=== PATIENT | male | born 1970 | race Caucasian/White ===

== ENCOUNTER 2019-12-29 00:18 | Emergency (ER) | payer BC, SELFPAY ==
[2019-12-29 00:23] VITALS: BP 160/119; PULSE 86; RESP 16; TEMP 36.8; O2SAT 98
--- NOTE | 2019-12-29 00:28 | W.ED.GENAD ---
Discharge Plan Disposition Patient Disposition: HOME Condition: Stable Discharge Details Chief Complaint: RashLesion Clinical Impression: Shingles Primary Care Provider: María Altamirano V ED Provider: Pedro Thomas Home Meds and New Rx's Prescriptions: New prednisone 20 mg tablet 60 mg PO DAILY 4 Days Qty: 12 RF: 0 valacyclovir [Valtrex] 1 gram tablet 1,000 mg PO Q8H Qty: 21 RF: 0 Discharge Instructions Instructions: Shingles (ED) Additional Instructions: follow up with [facility] on Monday if you have pain take 1000mg tylenol and 600mg ibuprofen every 6 hours if you take 1 of the oxycodone do not drink alcohol or drive return to the emergency department for high fevers or significant increase in pain Medical Decision Making 49 yo male comes in with pain in the right eye. HE has had a rash on the right side of his face and thought it was just a reaction to something that got on his skin. Tonight he had some pain of the rash and right eye so came here. Denies fevers, trauma, viision changes. He has vesicular rash on the right forehead consistent with shingles, has never had this before but did have chickenpox as a child. eomi, perrl, mild injection of conjunctiva on right, iop 10, 20/100 in both eyes without his glasses. On slit lamp has no psuedodendrite that I can see. Will start him on valtrex as well as oral steroids as the rash has been itching. Will have him f/u with [facility] on Monday as well. Return precautions given Differential Diagnosis Differential Diagnosis: shingles, herpes zoster opthalmicus HPI General Mode of arrival: ambulatory. Date/Time Provider Initiated Documentation: 12/29/19 00:20. Limitations to Documentation: no limitations. Information obtained by: patient. History of Present Illness 49 year old M presents to the emergency department with the chief complaint of rash, described as moderate, Patient started experiencing this day(s) (2) and it has been constant. No relieving factors improve symptom(s), No exacerbating factors reported . Patient did receive the following treatments prior to arrival, none Related Data Home Medications Medication Instructions Recorded Confirmed prednisone 60 mg PO DAILY 4 Days #12 tab 12/29/19 valacyclovir [Valtrex] 1,000 mg PO Q8H #21 tab 12/29/19 Previous Rx's Medication Instructions Recorded prednisone 60 mg PO DAILY 4 Days #12 tab 12/29/19 valacyclovir [Valtrex] 1,000 mg PO Q8H #21 tab 12/29/19 Allergies Allergy/AdvReac Type Severity Reaction Status Date / Time No Known Allergies Allergy Unverified 12/29/19 00:27 General Stated Complaint: RashLesion RUDDY: 3 Review of Systems All systems reviewed & are unremarkable except as noted in HPI and below Constitutional Constitutional: Denies chills, Denies fever(s) and Denies weakness Eyes Eyes: Denies loss of vision Cardiovascular Cardiovascular: Denies chest pain and Denies dyspnea Respiratory Respiratory: Denies cough and Denies dyspnea Gastrointestinal Gastrointestinal: Denies abdominal pain, Denies nausea and Denies vomiting Neurologic Neurologic: Denies loss of vision and Denies weakness PFSH Social History Smoking/Tobacco Use Status: Former Tobacco Use Substance use type: does not use Do you feel safe at home: Yes Exam Const General: no acute distress Orientation: alert HENMT Head: normal to inspection Ears: external ears normal General nose exam: external nose normal Mouth: moist mucous membranes Eyes Alignment and Position: alignment normal Pupils: PERRL Neck Neck: normal visual inspection Resp Effort & Inspection: normal respiratory effort and able to speak in complete sentences Cardio Rate: regular rate Skin General skin exam: elasticity normal Neuro General: patient alert and patient oriented x3 Extrem General: normal to inspection Psych Mental Status: mental status grossly normal Course Vital Signs Vital signs: Vital Signs Temperature 36.8 C 12/29/19 00:23 Pulse 86 12/29/19 00:23 Respiratory Rate 16 12/29/19 00:23 Pulse Oximetry 98 12/29/19 00:23 Temperature 36.8 C 12/29/19 00:23 Temperature Source Temporal Artery Scan 12/29/19 00:23 Pulse 86 12/29/19 00:23 Respiratory Rate 16 12/29/19 00:23 Blood Pressure Position Sitting 12/29/19 00:23 Pulse Oximetry 98 12/29/19 00:23 Oxygen Delivery Method Room Air 12/29/19 00:23 Oxygen Flow Rate 0 12/29/19 00:23 Pain Level 6 12/29/19 00:23
--- NOTE | 2019-12-29 00:31 | NUR.NOTE ---
Nursing Note:referal and note faxed to [facility] on 12/29/2019
[2019-12-29] MEDS: valACYclovir 1,000 MG TAB 1000 MG PO (00:35)
[2019-12-29] MEDS: Fluorescein STRIPS 100/BOX 1 MG (00:39)
[2019-12-29] MEDS: predniSONE 20 MG TAB 60 MG PO (00:40)
[2019-12-29] MEDS: Balanced Salt Solution 15 ML BTL (00:42)
[2019-12-29] MEDS: Tetracaine 0.5% 4 ML BTL (00:43)
== END 2019-12-29 00:45 | disposition home or self-care (01) ==
LOC: ER 00:49
PROVIDERS: Emergency Provider Emergency Medicine; PCP Family Medicine
DX: B02.9 Zoster without complications (principal)
CPT/HCPCS: 99283; J7512

== ENCOUNTER 2022-12-05 09:00 | Emergency (ER) | payer OTHER, SELFPAY ==
[2022-12-05 09:06] VITALS: BP 185/93; PULSE 81; RESP 20
--- NOTE | 2022-12-05 09:48 | ED.GENADUL_ITS ---
Discharge Plan Disposition Patient Disposition: Home Condition: Stable Discharge Details Clinical Impression: Fall due to ice or snow, Contusion of face, Abrasion of face, Concussion, Elevated blood pressure reading Primary Care Provider: María Altamirano V ED Provider: Alexandru Herrera Home Meds and New Rx's Prescriptions: Discontinued valacyclovir [Valtrex] 1 gram tablet 1,000 mg PO Q8H Qty: 21 0RF No Action No Known Home Meds Discharge Instructions Instructions: Concussion (ED), Abrasion (ED), Hypertension (ED) Additional Instructions: Your blood pressure was persistently elevated today. Please be sure to discuss this with your doctor. If blood pressure remains elevated, additional diagnostics and treatment may be necessary. Please contact your primary care physician to arrange follow-up. Call today. Return to the ER immediately for any worsening or new concerning symptoms including headache, dizziness, numbness or tingling, visual change or anything else concerning. Stand Alone Forms: Work Release Referrals: María Altamirano MD [Primary Care Provider] - Discharge Data Discharge Date/Time-TO BE ENTERED AT DEPARTURE: 12/05/22 10:56 Medical Decision Making 52-year-old male here after slip and fall on ice with injury to the right side of his face head. Patient was a bit dazed after the fall but notes he did not lose consciousness. Patient has no headache. He is neurologically intact. Suspect concussion. Considered intracranial hemorrhage. Discussed diagnostic imaging with the patient and he provided informed refusal of CT head. Patient has decisional making capacity. Plan will be for discharge with plan to return immediately should any worsening or new concerning symptoms. HPI General Mode of arrival: ambulatory . Date/Time Provider Initiated Documentation: 12/05/22 09:34 . Limitations to Documentation: no limitations . Information obtained by: patient . HPI Narrative: 52-year-old male presents after slip and fall on ice with injury to his right side of his head. Patient notes he felt a bit dazed and confused after the injury. Patient notes he did not lose consciousness. Patient notes some minimal unsteadiness after the injury. He is now feeling much better. He denies headache. He does have some right facial swelling. No pain with opening closing his jaw. No neck pain. No numbness or tingling. No visual changes. Related Data Home Medications Medication Instructions Recorded Confirmed Unknown [No Known Home Meds] 12/05/22 12/05/22 Allergies Allergy/AdvReac Type Severity Reaction Status Date / Time No Known Allergies Allergy Unverified 12/05/22 09:10 General Stated Complaint: Trauma RUDDY: 3 Review of Systems All systems reviewed & are unremarkable except as noted in HPI and below ENT Ears, Nose, Mouth, and Throat: Reports as per HPI Neurologic Neurologic: Reports as per HPI PFSH All Active Problems (Updated 12/05/22 @ 10:52 by Alexandru Herrera MD) Fall due to ice or snow (Acute) Contusion of face (Acute) Abrasion of face (Acute) Concussion (Acute) Elevated blood pressure reading (Acute) Social History Smoking/Tobacco Use Status: Current every day Tobacco Type: smokeless tobacco Smoking risk assessment performed?: Yes Drug use: Never Substance use type: does not use Do you feel safe at home: Yes Exam Const General: cooperative and no acute distress HENMT Ears: external ears normal and TM normal on the right Mouth: moist mucous membranes Other: Abrasion right lateral face with associated swelling, bite intact, able to open and close his mouth fully without pain, no bony tenderness Eyes EOM: EOM intact bilaterally Neck Neck: trachea midline and supple Resp Auscultation: clear to auscultation bilaterally, no rales, no rhonchi and no wheezes Cardio Rate: regular rate and not tachycardic Rhythm: regular rhythm GI Palpation: soft, not firm, no guarding, no masses, not rigid and nontender Skin General skin exam: no rashes or lesions noted Neuro General: patient alert, patient awake, patient oriented x3 and tone normal Cranial Nerves: CN's II-XI intact bilaterally Cognition: normal cognition Speech: speech normal Gait: normal gait Motor: strength 5/5 throughout Sensory Exam: no sensory deficits noted Extrem General: no edema Psych Appearance: grossly normal Mental Status: mental status grossly normal Speech and Movement: speech and movement normal Course Vital Signs Vital signs: Vital Signs Pulse 81 12/05/22 09:06 Respiratory Rate 20 12/05/22 09:06 Blood Pressure 185/93 H 12/05/22 09:06 Pulse 81 12/05/22 09:06 Respiratory Rate 20 12/05/22 09:06 Respiratory Effort Normal 12/05/22 09:11 Blood Pressure 185/93 H 12/05/22 09:06 Blood Pressure Position Sitting 12/05/22 09:06 Oxygen Delivery Method Room Air 12/05/22 09:06 Oxygen Flow Rate 0 12/05/22 09:06 Pain Level 0 12/05/22 09:06
[2022-12-05 10:52] VITALS: BP 182/98; PULSE 84; RESP 18; TEMP 37.2; O2SAT 98
== END 2022-12-05 10:56 | disposition home or self-care (01) ==
PROVIDERS: Emergency Provider Student in an Organized Health Care Education/Training Program; PCP Family Medicine
DX: S06.0X0A Concussion without loss of consciousness, initial encounter (principal); W01.198A Fall on same level from slipping, tripping and stumbling with subsequent striking against other object, initial encounter; S00.83XA Contusion of other part of head, initial encounter; S00.81XA Abrasion of other part of head, initial encounter
CPT/HCPCS: 90471; 99284; 99283

== ENCOUNTER → 2023-07-19 02:40 | Outpatient (CLI) | payer BC, SELFPAY ==
--- OUTSIDE RECORDS SUMMARY | 2023-07-18 13:56 | XMS_ITS | Patient Health Record ---
Author Name Unknown Organization [facility] Address [address] [place] [address] Care Team Providers Care Special Education Professor Name Role Phone KATHY GEORGES Primary Care Provider [phone] ROMELMATT Unavailable [phone] TWYLA WARREN Unavailable [phone] ALLERGIES No Known Allergies RESULTS Component Value Reference Range Notes LIPID PANEL Reviewed date:04/24/2023 11:56:14 AM Interpretation: Performing Lab:NL1, [facility], [address] [place] [address], [phone] Yaz Campbell M.D. Notes/Report: Received Date: [id number] CHOLESTEROL, TOTAL 182 <200 mg/dL HDL CHOLESTEROL 37 > OR = 40 mg/dL TRIGLYCERIDES 361 <150 mg/dL If a non-fasting specimen was collected, consider repeat triglyceride testing on a fasting specimen if clinically indicated. Estrella et al. J. of Clin. Lipidol. 2015;9:129-169. LDL-CHOLESTEROL 97 Reference range: <100 Desirable range <100 mg/dL for primary prevention; <70 mg/dL for patients with CHD or diabetic patients with > or = 2 CHD risk factors. LDL-C is now calculated using the Mando calculation, which is a validated novel method providing better accuracy than the Friedewald equation in the estimation of LDL-C. Timur CHANG et al. MARIAH. 2013;310(19): 0285-9400 (http://education.[employer].com/faq/FAQ16 4) CHOL/HDLC RATIO 4.9 <5.0 (calc) NON HDL CHOLESTEROL 145 <130 mg/dL (calc) For patients with diabetes plus 1 major ASCVD risk factor, treating to a non-HDL-C goal of <100 mg/dL (LDL-C of <70 mg/dL) is considered a therapeutic option. CBC (INCLUDES DIFF/PLT) Reviewed date:04/24/2023 11:56:29 AM Interpretation: Performing Lab:NL1, [facility], [address] [place] [address], [phone] Yaz Campbell M.D. Notes/Report: Received Date: [id number] WHITE BLOOD CELL COUNT 5.7 3.8-10.8 Thousand/ uL RED BLOOD CELL COUNT 5.00 4.20-5.80 Million/uL HEMOGLOBIN 14.4 13.2-17.1 g/dL HEMATOCRIT 44.9 38.5-50.0 % MCV 89.8 80.0-100.0 fL MCH 28.8 27.0-33.0 pg MCHC 32.1 32.0-36.0 g/dL RDW 13.3 11.0-15.0 % PLATELET COUNT 199 140-400 Thousand/uL MPV 12.2 7.5-12.5 fL ABSOLUTE NEUTROPHILS 3711 9619-2631 cells/uL ABSOLUTE LYMPHOCYTES 1624 733-1111 cells/uL ABSOLUTE MONOCYTES 553 200-950 cells/uL ABSOLUTE EOSINOPHILS 120 15-500 cells/uL ABSOLUTE BASOPHILS 63 0-200 cells/uL NEUTROPHILS 65.1 LYMPHOCYTES 22.0 MONOCYTES 9.7 EOSINOPHILS 2.1 BASOPHILS 1.1 PSA, TOTAL Reviewed date:04/24/2023 11:56:45 AM Interpretation: Performing Lab:NL1, [facility], [address] [place] [address], [phone] Yaz Campbell M.D. Notes/Report: Received Date: [id number] PSA, TOTAL 3.75 < OR = 4.00 ng/mL The total PSA value from this assay system is standardized against the WHO standard. The test result will be approximately 20% lower when compared to the equimolar-standardized total PSA (Rinku Melfa). Comparison of serial PSA results should be interpreted with this fact in mind. This test was performed using the Siemens chemiluminescent method. Values obtained from different assay methods cannot be used interchangeably. PSA levels, regardless of value, should not be interpreted as absolute evidence of the presence or absence of disease. TSH, 3RD GENERATION W/REFLEX TO FT4 Reviewed date:04/24/2023 11:56:36 AM Interpretation: Performing Lab:NL1, [facility], [address] [place], [phone] Yaz Campbell M.D. Notes/Report: Received Date: TSH W/REFLEX TO FT4 1.57 0.40-4.50 mIU/L COMPREHENSIVE METABOLIC PANE L Reviewed date:04/24/2023 11:56:21 AM Interpretation: Performing Lab:NL1, [facility], [address] [place], [phone] Yaz Campbell M.D. Notes/Report: Received Date: GLUCOSE 80 65-99 mg/dL Fasting reference interval UREA NITROGEN (BUN) 15 7-25 mg/dL CREATININE 0.95 0.70-1.30 mg/dL EGFR 95 > OR = 60 mL/min/1.73m2 The eGFR is based on the CKD-EPI 2020 equation. To calculate the new eGFR from a previous Creatinine or Cystatin C result, go to https://www.kidney.org/p benfessionals/ kdoqi/gfr%5Fcalculator BUN/CREATININE RATIO NOT APPLICABLE 6-22 (calc) SODIUM 140 135-146 mmol/L POTASSIUM 3.9 3.5-5.3 mmol/L CHLORIDE 104 98-110 mmol/L CARBON DIOXIDE 26 20-32 mmol/L CALCIUM 9.5 8.6-10.3 mg/dL PROTEIN, TOTAL 7.1 6.1-8.1 g/dL ALBUMIN 4.3 3.6-5.1 g/dL GLOBULIN 2.8 1.9-3.7 g/dL (calc) ALBUMIN/GLOBULIN RATIO 1.5 1.0-2.5 (calc) BILIRUBIN, TOTAL 0.6 0.2-1.2 mg/dL ALKALINE PHOSPHATASE 70 35-144 U/L AST 20 10-35 U/L ALT 24 9-46 U/L REASON FOR REFERRAL Reason follow up colonoscop y for adenomas please eval & treat office to schedule appointment Diagnosis 1 Polyp of colon (K63. 5) Referral Organization [facility] Referring Provider First Name TWYLA Referring Provider Last Name BRIANA Referring Provider Speciality Physician Aerial Photographer Referred Provider Reyes Dupont Referred Provider Specialty Gastroentero logy Referral Priority Routine Reason please eval & treat bumps on skin office to schedule appointment Diagnosis 1 Soft tissue disorder , unspecified (M79.9) Referral Organization [facility] Referring Provider First Name TERESA [facility] Referring Provider Speciality Physician Aerial Photographer Referred Provider Karl Jurado Referred Provider Specialty Allergy/Immu nology Referral Priority Routine MEDICATIONS Medication SIG (Take, Route, Fr equency, Duration) Notes Start Date End Date Status Multiple Vitamins - 1 tablet Orally Once a day Active IMMUNIZATIONS Vaccine Route Administration Date Status Comme nts Tdap-Adult IM Intramuscular 02/19/2016 Administered Moderna COVID-19 IM Intramuscular 10/20/2020 Administered Moderna COVID-19 IM Intramuscular 11/17/2020 Administered Moderna COVID-19 Unknown 07/18/2021 Administered Influenza Unknown 06/17/2011 Administered SOCIAL HISTORY Tobacco Use: Social History Observation Description Date Details (start date - stop date) Former Smoker NA - NA Sex Assigned At : Social History Observation Description Sex Assigned At Unknown Tobacco Use/Smoking Question Answer Notes Are you a former smoker How long has it been since you last smoked? 1-5 years Alcohol Screen Question Answer Notes Did you have a drink containing alcohol in the p ast year? 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) Active confirmed Soft tissue dis order (79327449) Problem Pure hypercholester olemia, unspecified (E78.00) Active confirmed Pure hypercholesterolemia (126698500) Problem Elevated prostate specific antigen [PSA] (R97.20) Active confirmed Elevated PSA (912123689) Encounters Encounter Location Date Provider Diagnosis [address] [address] 12/07/2022 MATT FAUSTINKINS [facility] [address] [place] [address] 04/06/2023 TWYLA WARREN Encounter for general adult medical examination without abnormal findings Z00.00 ; Polyp of colon K63.5 and Soft tissue disorder, unspecified M79.9 [facility] [address] [place] [address] 04/24/2023 TWYLA WARREN Pure hypercholesterolemia , unspecified E78.00 and Elevated prostate specific antigen [PSA] R97.20 ASSESSMENTS Encounter Date Diagnosis Assessment Notes Treatment Notes Treatment Clinical Notes 04/06/2023 Polyp of colon (ICD-10 - K63.5) 04/06/2023 Encounter for general adult medical examination without abnormal findings (ICD-10 - Z00.00) 04/24/2023 Pure hypercholesterolemia , unspecified (ICD-10 - E78.00) 04/24/2023 Elevated prostate specific antigen [PSA] (ICD-10 - R97.20) 04/06/2023 Soft tissue disorder, unspecified (ICD-10 - M79.9) PLAN OF TREATMENT Pending Test Test Name Order Date Electrocardiogram (EKG) 02/13/2015 Future Test Test Name Order Date COMPREHENSIVE METABOLIC PANEL 10/18/2023 PSA, TOTAL 10/18/2023 LIPID PANEL 10/18/2023 Next Appt Details Provider Name:TWYLA BONNER CHICO, 10/18/2023 08:00:00 AM, [address] [place] [address], [place], [address], Provider Name:TWYLA BONNER CHICO, 04/08/2024 08:30:00 AM, [address] [facility], [place], [address], Insurance Providers Payer Name Payer Address Payer Phone Subscriber Number Group Number Insured Name Patient Relationship to Insured Coverage Start Date Coverage End Date [employer] [address] [id number] Davey Rm Self - patient is the insured 2018 MEDICAL (GENERAL) HISTORY Medical History History ICD Code 06-01-2023 colonoscopy, repeat 3 years Surgical History Surgery Date(Month/Year) carpal tunnel release colonoscopy 07/09/2020 left knee medial meniscal repair 2 colonoscopy 06/01/2023
--- OUTSIDE RECORDS SUMMARY | 2023-07-18 13:56 | XMS_ITS | Continuity of Care Document ---
Author Name Unknown Organization [facility] Address [address] [place] [address] Encounter [facility] FIN NBR [id number] Date(s): 12/07/22 - 12/07/22 [facility] [address] [place] [address]- Encounter Diagnosis Postconcussive syndrome(Discharge Diagnosis) - 12/07/22 Discharge Disposition: Home or Self Care Attending Physician: John Geronimo MD Admitting Physician: John Geronimo MD Allergies, Adverse Reactions, Alerts No Known Allergies Functional Status 12/07/22 Other exposure to Infectious Disease Non e Medications ondansetron 4 mg oral tablet 4 mg = 1 tab, Oral, QID, PRN nausea, # 8 tab, 0 Refill(s), 12/14/22 10:37:00 EDT Start Date: 12/07/22 Stop Date: 12/14/22 Status: Ordered Mental Status 12/07/22 Eye Opening Response Marie Spontaneous ly Best Verbal Response [place] Oriented Best Motor Response Marie Obeys comman ds Marie Coma Score 15 Results Radiology Reports * Exam Date Time Procedure Performing Provider Status 12/07/22 10:[address] Head w/o Contrast Salvador, Arianne; Nidia (Verified) Notes: (CT Head w/o Contrast) Reason For Exam: Trauma CT Head w/o Contrast EXAM DESCRIPTION: CT Head w/o Contrast N/A INDICATION: TRAUMA TECHNIQUE: All CT scans at this facility use at least one of these dose optimization techniques: Automated exposure control; mA and/or kV adjustment per patient size (includes targeted exams where dose is matched to clinical indication); or iterative reconstruction. Axial CT images of the head without contrast. COMPARISON: None FINDINGS: No acute intracranial hemorrhage, mass effect or midline shift. No hydrocephalus. Lemons-white differentiation is maintained. Basal cisterns remain patent. The calvarium appears intact. The visualized paranasal sinuses are grossly clear. IMPRESSION: No acute intracranial hemorrhage, mass effect or midline shift. JOB #: [id number] Final Signed by: Aleks Wheeler MD Signed (Electronic Signature): 12/07/2022 10:17 am Vital Signs Most recent to oldest [Reference Range]: 1 2 Temperature Temporal Artery [36-38 Deg C ] 36.7 Deg C (12/07/22 9:33 AM) Peripheral Pulse Rate [60-100 bpm] 72 bp m (12/07/22 10:54 AM) 76 bpm (12/07/22 9:33 AM) Respiratory Rate [12-24 br/min] 16 br/mi n (12/07/22 10:54 AM) 16 br/min (12/07/22 9:33 AM) Blood Pressure [90-140/60-90 mmHg] 174/9 4mmHg *HI* (12/07/22 10:54 AM) 158/91mmHg *HI* (12/07/22 9:33 AM) Weight Dosing 98.00 kg (12/07/22 9:50 AM) Weight Estimated 98.00 kg (12/07/22 9:33 AM) Height/Length Dosing 177.000 cm (12/07/22 9:50 AM) Height/Length Estimated 177.000 cm (12/07/22 9:33 AM) Social History Social History Type Response Tobacco Never tobacco user T obacco Use:. Sex Hospital Discharge Instructions Patient Education 12/07/2022 09:32:07 Post-Concussion Syndrome Post-Concussion Syndrome A concussion is a brain injury from a direct hit to the head or body. This hit causes the brain to shake quickly back and forth inside the skull. This can damage brain cells and cause chemical changes in the brain. Concussions are usually not life-threatening but can cause serious symptoms. Post-concussion syndrome is when symptoms that occur after a concussion last longer than normal. These symptoms can last from weeks to months. What are the causes? The cause of this condition is not known. It can happen whether your head injury was mild or severe. What increases the risk? You are more likely to develop this condition if: ??? You are female. ??? You are a child, teen, or young adult. ??? You have had a past head injury. ??? You have a history of headaches. ??? You have depression or anxiety. ??? You have loss of consciousness or cannot remember the event (have amnesia of the event). ??? You have multiple symptoms or severe symptoms at the time of your concussion. What are the signs or symptoms? Symptoms of this condition include: ??? Physical symptoms. You may have: ??? Headaches. ??? Tiredness. ??? Dizziness and weakness. ??? Blurry vision and sensitivity to light. ??? Hearing difficulties. ??? Problems with balance. ??? Mental and emotional symptoms. You may have: ??? Memory problems and trouble concentrating. ??? Difficulty sleeping or staying asleep. ??? Feelings of irritability. ??? Anxiety or depression. ??? Difficulty learning new things. How is this diagnosed? This condition may be diagnosed based on: ??? Your symptoms. ??? A description of your injury. ??? Your medical history. ??? Testing your strength, balance, and nerve function (neurological examination). Your health care provider may order other tests, including brain imaging such as a CT scan or an MRI, and memory testing (neuropsychological testing). How is this treated? Treatment for this condition may depend on your symptoms. Symptoms usually go away on their own over time. Treatments may include: ??? Medicines for headaches, anxiety, depression, and trouble sleeping (insomnia). ??? Resting your brain and body for a few days after your injury. ??? Rehabilitation therapy, such as: ??? Physical or occupational therapy. This may include exercises to help with balance and dizziness. ??? Mental health counseling. A form of talk therapy called cognitive behavioral therapy (CBT) can be especially helpful. This therapy helps you set goals and follow up on the changes that you make. ??? Speech therapy. ??? Vision therapy. A brain and economic specialist can recommend treatments for vision problems. Follow these instructions at home: Medicines ??? Take sdoj-udl-fxdrjxc and prescription medicines only as told by your health care provider. ??? Avoid opioid prescription pain medicines when recovering from a concussion. Activity ??? Limit your mental activities for the first few days after your injury. This may include not doing the following: ??? Homework or job-related work. ??? Complex thinking. ??? Watching TV, and using a computer or phone. ??? Playing memory games and puzzles. ??? Gradually return to your normal activity level. If a certain activity brings on your symptoms, stop or slow down until you can do the activity without it triggering your symptoms. ??? Limit physical activity, such as exercise or sports, for the first few days after a concussion.Gradually return to normal activity as told by your health care provider. ??? Rest. Rest helps your brain heal. Make sure you: ??? Get plenty of sleep at night. Most adults should get at least 7???9 hours of sleep each night. ??? Rest during the day. Take naps or rest breaks when you feel tired. ??? Do not do high-risk activities that could cause a second concussion, such as riding a bike or playing sports. Having another concussion before the first one has healed can be dangerous. General instructions ??? Do not drink alcohol until your health care provider says that you can. ??? Keep track of the frequency and the severity of your symptoms. Give this information to your health care provider. ??? Keep all follow-up visits as directed by your health care provider. This is important. This includes visits with specialists. Contact a health care provider if: ??? Your symptoms do not improve. ??? You have another injury. Get help right away if you: ??? Have a severe or worsening headache. ??? Are confused. ??? Have trouble staying awake. ??? Faint. ??? Vomit. ??? Have weakness or numbness in any part of your body. ??? Have a seizure. ??? Have trouble speaking. Summary ??? Post-concussion syndrome is when symptoms that occur after a concussion last longer than normal. ??? Symptoms usually go away on their own over time. Depending on your symptoms, you may need treatment, such as medicines or rehabilitation therapy. ??? Rest your brain and body for a few days after your injury. Gradually return to normal activities as told by your health care provider. ??? Get plenty of sleep, and avoid alcohol and opioid pain medicines while recovering from a concussion. This information is not intended to replace advice given to you by your health care provider. Make sure you discuss any questions you have with your health care provider. Document Revised: 12/02/2021 Document Reviewed: 12/02/2021 [employer] Patient Education ?? 2021 [employer]. Physician Emergency department Note * Dayron Chicas MD: PERFORM Event Display: ED Note Physician Authored Date: [id number] GEORGINA JIMENEZ :1970 Age:52 years Sex:Male Visit Date:12/07/2022 Basic Information Time Seen: Dayron Chicas MD / 12/07/2022 10:03 Chief Complaint Patient reports slip and fall on 12/04 while at work, + head strike on back of curb. Patient complains of nausea since then. Denies thinners. Healing abrasion noted to right ear. Seen at [facility]. History Of Present Illness: 52-year-old??48 hours??out from slip and fall striking right??occiput??right angle of jaw??directlyon concrete curb, not anticoagulated, no antiplatelet agents,??was seen at [facility]??and discharged without imaging, presents with??persistent??mild headache, some nausea has not vomited, denies any neur ologic complaints or neck pain. Review of Systems: Review of Systems: Constitutional: [No fevers, Eye: [No acute visual complaints] ENT: [No ear pain, nasal congestion, sore throat] Respiratory: [No shortness of breath, -cough] Cardiovascular: [No Chest pain Gastrointestinal: Nauseated without vomiting,??no abdominal pain] Musculoskeletal: [Denies neck pain or decreased range of motion about cervical spine] Integumentary: Small abrasion right angle of jaw/lateral face??right-sided] Neurologic: [No focal sensory or motor complaints. Denies syncope]??no weakness in arms or legs ? Physical Exam: General: [Alert and oriented, well nourished, no acute distress].?GCS 15 Eye: [PERRL, EOMI, normal conjunctiva]. HENT: [Normocephalic, normal hearing, moist oral mucosa, no scleral icterus, no nasal discharge].?? 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 Heart: [Normal rate, regular rhythm]. Abdomen: [Soft, non-tender, non-distended, normal bowel sounds].?? Musculoskeletal: [Normal range of motion and strength, no tenderness or swelling]. Skin: [Skin is warm, dry and pink, no rashes or lesions]. Neurologic: [Awake, alert and oriented X4, normal tone, moving all extremities with good strength].[Ambulation intact].?? Finger-nose intact, no drift,??hops on single feet, normal ambulation, 5/5 throughout,??intact cranial nerves??with no asymmetry Psychiatric: [Cooperative, appropriate mood and affect]. Physical Exam Vitals & Measurements T:??36.7?C ??(Temporal Artery)?? HR:??76??(Peripheral)?? RR:??16?? BP:??158/91?? SpO2:??98%?? HT:??177.000??cm?? WT:??98.00??kg??(Estimated)?? O2 Therapy:??Room air?? Procedure No Qualifying Data Assessment/Plan Neurologically intact, 2 days out from??original event but with??nausea;??unsure if he had LOC at the time.?? 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 He was at work today complaining of dizziness and was??referred to ED by his primary care provider??to get imaging.?? While I amconfident he does not have a surgical emergency, I think it is possible??he has a contusion or skull fracture given??his mechanism of injury (I reviewed the fall which was captured on video with his head directly striking the curb).?? CT head was obtained; discussed with radiology.?? No fracture, no contusion.?? Will discharge patient with diagnosis of postconcussive syndrome,??follow-up with??PMD; he should not??be driving if he is??having dizziness.?? Tylenol/Motrin for discomfort as necessary.?? Follow-up with neurology/concussion??clinic if persistent symptoms. Patient Discharge Condition Good Discharge Disposition Home Problem List/Past Medical History Ongoing No qualifying data Historical No qualifying data Allergies No Known Allergies Social History Electronic Cigarette/Vaping Electronic Cigarette Use: Never. Tobacco Never tobacco user Tobacco Use:. Diagnostic Results CT Head w/o Contrast 12/07/2022 10:[address] Head w/o Contrast ?? 12/07/22 10:17:53 EXAM DESCRIPTION: CT Head w/o Contrast ?? N/A ?? INDICATION: TRAUMA ?? TECHNIQUE: All CT scans at this facility use at least one of these dose optimization techniques: Automated exposure control; mA and/or kV adjustment per patient size (includes targeted exams where dose is matched to clinical indication); or iterative reconstruction. ?? Axial CT images of the head without contrast. ?? COMPARISON: None ?? FINDINGS: No acute intracranial hemorrhage, mass effect or midline shift. No hydrocephalus. Lemons-white differentiation is maintained. Basal cisterns remain patent. ?? The calvarium appears intact. ?? The visualized paranasal sinuses are grossly clear. ?? IMPRESSION: No acute intracranial hemorrhage, mass effect or midline shift. ? JOB #: [id number] Dayron Chicas MD Emergency department Discharge instructions * Dayron Chicas MD: PERFORM Event Display: ED Discharge Information Authored Date: [id number] GEORGINA JIMENEZ :1970 Age:52 years Sex:Male Visit Date:12/07/2022 Discharge Instructions We would like to thank you for allowing us to assist you with your healthcare needs. The following includes patient education materials and information regarding your injury/illness. Diagnosis from Today's Visit Postconcussive syndrome Discharge Vitals Temperature??(Temporal Artery) 98.1 ??F (36.7 ??C) Heart Rate??(Peripheral) 76 Respiratory Rate?? 16 Blood Pressure?? 158/91?? Height?? 69.69 in (177.000 cm) Weight??(Estimated) 216.09 lb (98.00 kg) Allergies No Known Allergies What to Do Next Instructions from Your Care Team Your brain scan did not identify a fracture, bleeding on your brain or any other??acute injury.?? It is not uncommon after people have a direct blow to the head as you did??have persistent dizziness,some nausea, and headache.?? You should not drive if you are feeling??dizzy??and nauseated.?? Okay to take Tylenol/Motrin for discomfort as necessary.?? I am writing you for a limited number of??Zofran tablets to use for nausea.?? These dissolve on your tongue and you can take 1 tablet every 4-6 hours. Most patients improve??within a few days to weeks. ??If you have persistent??dizziness, headaches??nausea??you should follow-up with a neurologist or a concussion clinic.?? You were treated today on an emergency basis; it may be noyola to contact your primary care provider to notify them of your visit today. You may have been referred to your regular doctor or a specialist, please follow up as instructed. If your condition worsens or you can't get in to see the doctor, contact the Emergency Department. Medications What How Much When Why Instructions Next Dose New ondansetron (ondansetron 4 mg oral tablet) 1 tab Oral (given by mouth) 4 times a day as needed for nausea Postconcussive syndrome Printed Prescription Education Materials Post-Concussion Syndrome A concussion is a brain injury from a direct hit to the head or body. This hit causes the brain to shake quickly back and forth inside the skull. This can damage brain cells and cause chemical changes in the brain. Concussions are usually not life-threatening but can cause serious symptoms. Post-concussion syndrome is when symptoms that occur after a concussion last longer than normal. These symptoms can last from weeks to months. What are the causes? The cause of this condition is not known. It can happen whether your head injury was mild or severe. What increases the risk? You are more likely to develop this condition if: ? You are female. ? You are a child, teen, or young adult. ? You have had a past head injury. ? You have a history of headaches. ? You have depression or anxiety. ? You have loss of consciousness or cannot remember the event (have amnesia of the event). ? You have multiple symptoms or severe symptoms at the time of your concussion. What are the signs or symptoms? Symptoms of this condition include: ? Physical symptoms. You may have: ? Headaches. ? Tiredness. ? Dizziness and weakness. ? Blurry vision and sensitivity to light. ? Hearing difficulties. ? Problems with balance. ? Mental and emotional symptoms. You may have: ? Memory problems and trouble concentrating. ? Difficulty sleeping or staying asleep. ? Feelings of irritability. ? Anxiety or depression. ? Difficulty learning new things. How is this diagnosed? This condition may be diagnosed based on: ? Your symptoms. ? A description of your injury. ? Your medical history. ? Testing your strength, balance, and nerve function (neurological examination). Your health care provider may order other tests, including brain imaging such as a CT scan or an MRI, and memory testing (neuropsychological testing). How is this treated? Treatment for this condition may depend on your symptoms. Symptoms usually go away on their own over time. Treatments may include: ? Medicines for headaches, anxiety, depression, and trouble sleeping (insomnia). ? Resting your brain and body for a few days after your injury. ? Rehabilitation therapy, such as: ? Physical or occupational therapy. This may include exercises to help with balance and dizziness. ? Mental health counseling. A form of talk therapy called cognitive behavioral therapy (CBT) can be especially helpful. This therapy helps you set goals and follow up on the changes that you make. ? Speech therapy. ? Vision therapy. A brain and economic specialist can recommend treatments for vision problems. Follow these instructions at home: Medicines ? Take keah-azr-xlrbkmz and prescription medicines only as told by your health care provider. ? Avoid opioid prescription pain medicines when recovering from a concussion. Activity ? Limit your mental activities for the first few days after your injury. This may include not doing the following: ? Homework or job-related work. ? Complex thinking. ? Watching TV, and using a computer or phone. ? Playing memory games and puzzles. ? Gradually return to your normal activity level. If a certain activity brings on your symptoms, stopor slow down until you can do the activity without it triggering your symptoms. ? Limit physical activity, such as exercise or sports, for the first few days after a concussion. Gradually return to normal activity as told by your health care provider. ? Rest. Rest helps your brain heal. Make sure you: ? Get plenty of sleep at night. Most adults should get at least 7???9 hours of sleep each night. ? Rest during the day. Take naps or rest breaks when you feel tired. ? Do not do high-risk activities that could cause a second concussion, such as riding a bike or playing sports. Having another concussion before the first one has healed can be dangerous. General instructions ? Do not drink alcohol until your health care provider says that you can. ? Keep track of the frequency and the severity of your symptoms. Give this information to your healthcare provider. ? Keep all follow-up visits as directed by your health care provider. This is important. This includes visits with specialists. Contact a health care provider if: ? Your symptoms do not improve. ? You have another injury. Get help right away if you: ? Have a severe or worsening headache. ? Are confused. ? Have trouble staying awake. ? Faint. ? Vomit. ? Have weakness or numbness in any part of your body. ? Have a seizure. ? Have trouble speaking. Summary ? Post-concussion syndrome is when symptoms that occur after a concussion last longer than normal. ? Symptoms usually go away on their own over time. Depending on your symptoms, you may need treatment, such as medicines or rehabilitation therapy. ? Rest your brain and body for a few days after your injury. Gradually return to normal activities astold by your health care provider. ? Get plenty of sleep, and avoid alcohol and opioid pain medicines while recovering from a concussion. This information is not intended to replace advice given to you by your health care provider. Make sure you discuss any questions you have with your health care provider. Document Revised: 12/02/2021 Document Reviewed: 12/02/2021 [employer] Patient Education ?? 2021 [employer] 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 Axial CT images of the head without contrast. COMPARISON: None FINDINGS: No acute intracranial hemorrhage, mass effect or midline shift. No hydrocephalus. Lemons-white differentiation is maintained. Basal cisterns remain patent. The calvarium appears intact. The visualized paranasal sinuses are grossly clear. IMPRESSION: No acute intracranial hemorrhage, mass effect or midline shift. JOB #: [id number] Final Signed by: Aleks Wheeler MD Signed (Electronic Signature): 12/07/2022 10:17 am Patient Care team information Care Team Personnel Name: Lalita Salvador Position: Nurse Member Role: ED Nurse Name: Dayron Chicas MD Position: Physician Member Role: ED Physician Address: Address: [facility] EMERGENCY DEPT [address] [place] [address]- Care Team Related Persons Name: WOLF JIMENEZ
--- NOTE | 2023-07-19 | DI.MRI_ITS ---
Exam(s) MR UPPER EXTREMITY RT WO EXAM: MR UPPER EXTREMITY RT WO CLINICAL HISTORY: DISORDER OF BONE M89.9 R/O LESION VS COLLATERAL LIGAMENT INJURY. TECHNIQUE: Multiplanar multisequence MRI was performed. COMPARISON: Comparison examination is 06/07/2023. FINDINGS: BONES: There is no fracture or contusion pattern. There is an osteophyte arising from the anterior as pect of the head of the 3rd metacarpal bone. There is normal marrow signal. There are also linear a reas of hypointense T1 and T2 signal paralleling the articular surface of the head of the 3rd meta ca rpal bone. Hyperintense signal seen on the T2 weighted images in the subchondral bone. This may rep resent arthritis. Avascular necrosis may also be considered. There is a protrusion on the dorsal me dial aspect of the head of the 3rd metacarpal bone. It is isointense to marrow on the T1 weighted im ages and hyperintense on the T2 weighted images. No associated soft tissue mass is seen. JOINTS: The radiocarpal joint is unremarkable. The carpal joints are unremarkable. TENDONS: Flexors: Unremarkable. Extensors: Unremarkable. MUSCLES: Unremarkable. MEDIAN NERVE: Unremarkable on this noncontrast examination. SOFT TISSUES: There is a small amount of fluid seen in the dorsal aspect of the heads of both the 2nd and 3rd metacarpal bones. They both appear to communicate with the joint and may represent ganglion or synovial cysts. LIGAMENTS: Unremarkable. OTHER: IMPRESSION: 1. Osteophyte arising from the anterior aspect of the head of the 3rd metacarpal bone. 2. Abnormal signal seen along the articular surface of the head of the 3rd metacarpal bone. Arthriti s versus avascular necrosis. 3. Protrusion arising from the posterior aspect of the head of the 3rd metacarpal bone. This may rep resent arthritis. Neoplastic process cannot be excluded. There is no associated soft tissue mass. A CT scan should be considered to assess for evidence of bone destruction. 4. No evidence of a ligament or tendon tear. DATA REPOSITORY:
== END ==
PROVIDERS: PCP Family Medicine; Visit Provider Orthopaedic Surgery
DX: M25.741 Osteophyte, right hand (principal)
CPT/HCPCS: 73218

== ENCOUNTER 2024-03-08 05:22 | Outpatient (CLI) | payer SELFPAY ==
[2024-03-11 11:06] LABS: TB Interpretation Negative (Negative)
[2024-03-11 12:37] LABS: Varicella IgG Antibody Positive (See Note)
[2024-03-11 12:40] LABS: Measles IgG Antibody Positive (See Note); Mumps Antibody IgG Positive (See Note)
[2024-03-11 12:42] LABS: Rubella IgG Ab (UVM) Positive (See Note)
== END 2024-03-08 05:23 | disposition home or self-care (01) ==
LOC: LBO 05:22
PROVIDERS: PCP Family Medicine; Visit Provider Nurse Practitioner Family
DX: Z02.1 Encounter for pre-employment examination (principal)
CPT/HCPCS: 36415; 86787; 86480; 86735; 86762; 86765

== ENCOUNTER 2025-06-11 14:37 | Outpatient (CLI) | payer BC, SELFPAY ==
--- NOTE | 2025-06-11 06:00 | DI.RAD_ITS ---
Exam(s) XR PAIN CLINIC CERVICAL SP 2V EXAM: XR PAIN CLINIC CERVICAL SP 2V CLINICAL HISTORY: Dx: Cervical Spondylosis. TECHNIQUE: Fluoroscopy was provided for the referring physician for guidance with performing pain clinic injection procedure. COMPARISON: No exams were available for comparison FINDINGS: Please see procedure note for details. Fluoro time: 35.3 seconds RADIATION DOSE DELIVERED: samson Bah=12.95 mGy
[2025-06-11 14:50] VITALS: BP 152/81; PULSE 69; RESP 19; TEMP 37.2; O2SAT 99
[2025-06-11 15:15] VITALS: PULSE 77; O2SAT 98
[2025-06-11 15:17] VITALS: BP 167/51; PULSE 75; PULSE 80; RESP 19; O2SAT 99
[2025-06-11 15:20] VITALS: PULSE 74; PULSE 75; RESP 16; O2SAT 100
--- NOTE | 2025-06-11 15:29 | PDOC.PAIN_ITS ---
Date of service: 06/11/25 Time of Service: 15:29 Pain Managment Procedure Note Procedure Note Procedure Note: PROCEDURE NOTE LEFT SIDED CERVICAL MEDIAL BRANCH BLOCKS Date of Service: June 11, 2025 Patient: Davey Rm Provider: John Francois DO, MPH Davey Rm has been [facility] for cervical medial branch blocks. Pre-operative diagnosis: Cervical Spondylosis without Myelopathy ICD-10 M47.812 Post-operative diagnosis: Same Pre-procedure pain: VAS= 7/10 COMMENTS: I previously evaluated him in the office. His symptoms are unchanged. Davey?was interviewed and the medical records were reviewed. There were no medical, pharmacologic, radiographic or other structural contraindications to attempting fluoroscopically guided local anesthetic cervical medial branch blocks. Risks and potential side effects were discussed. I also discussed the potential benefit(s) of the procedure with Davey, and voiced concerns were addressed. After Davey was completely informed about the procedure, the printed consent form was signed. A standard time-out procedure was performed. Davey was placed in the lateral decubitus position on the fluoroscopy table with the effected side up. Automated blood pressure cuff and pulse oximeter were applied. The skin entry points for approaching the anatomic target points of the segmental medial branches of Left C4,C5, C6 and C7 were identified with fluoroscopy and marked. The skin at the target site area was thoroughly prepared with Chlorhexadine. The skin was then draped. Next, a 25 gauge 3.5 spinal needle was placed under fluoroscopic guidance down on to the target point (the articular pillar) for each respective segmental medial branch. Position was confirmed in A/P and lateral views. Aspiration revealed no blood or clear fluid. Next, 0.25ml of omnipaque 240 was injected at each level. No contrast following a vascular or neural pattern was visualized under continuous fluoroscopy. Next, 0.25 ml of preservative-free 0.5% bupivicaine was injected at each level. (49 mls of Omnipaque was wasted) There was no unusual discomfort expressed by Davey. The needles were withdrawn without difficulty. Davey was observed and was without hemodynamic, neurologic, or allergic reactions.? Flu oroscopic images were digitally archived. Davey's vital signs were stable throughout the procedure and were as recorded in the docflowsheet by the nursing staff. Provacative testing using the Modified Griffin's facet loading test Left side Directly before the block VAS (0-10) = 7/10 Five minutes after the block VAS (0-10) = 1/10 Percentage relief obtained with this diagnostic block 90% Any improved physical functioning directly after the blocks? Able to move his neck much more easily Follow up plans and appointments were discussed with Davey. Davey was instructed to keep careful note of how the usual pain was modified by these injections. Specifically, to keep a pain diary for the next 4 hours using a numeric pain scale of 0-10 and report these results. Post procedure instruction was given as documented in the nursing documentation and having met discharge criteria, the patient was [facility] the [facility]. Based on the medial branches blocked today, if Davey has adequate relief and we are able to proceed to radiofrequency ablation, the treatment should result in the denervation of the Left C4-C5, C5-C6, and C6-C7 facet joints. We would expect to denervate a total of 3 facets during the radiofrequency ablation. COMMENTS: No apparent complications. Post-procedure pain: VAS= 1/10 Davey will call back with 0-4 hour post-procedure pain scores. I personally performed the entire procedure. JOHN FRANCOIS DO, MPH ABPM&R-subspecialty board certification in Pain Medicine [facility] Coding Conscious Sedation used for procedure: No CPT Codes: CMBB (includes Fluoro) Cervical/Thoracic, 2nd lvl - 78373 ([id number] ~G) CMBB (includes Fluoro) Cervical/Thoracic, 3rd & add'l lvls - 89402 ([id number] ~G) CMBB (includes Fluoro) Cervical/Thoracic, single lvl - 56535 ([id number] ~G) Additional Codes: Date of Service (31605) Date of service: 06/11/25 Diagnoses: Cervical spondylosis without myelopathy
[2025-06-11 15:33] VITALS: BP 164/87; PULSE 69
[2025-06-11] MEDS: Nerve Block Tray 1 EACH MC (15:44)
[2025-06-11] MEDS: Bupivacaine 0.5% Pres-Free 10 ML VIAL IJ (15:44)
[2025-06-11] MEDS: Omnipaque 240 MG/ML 50 ML BTL IJ (15:44)
== END 2025-06-11 14:38 | disposition home or self-care (01) ==
LOC: PC 14:37
PROVIDERS: PCP Physician Assistant; Visit Provider Preventive Medicine Occupational Medicine
DX: M47.812 Spondylosis without myelopathy or radiculopathy, cervical region (principal)
CPT/HCPCS: 64490; 64491; 64492; 72040; J0665; Q9967

== ENCOUNTER 2025-06-25 14:44 | Outpatient (CLI) | payer BC, SELFPAY ==
--- NOTE | 2025-06-25 06:00 | DI.RAD_ITS ---
Exam(s) XR PAIN CLINIC CERVICAL SP 2V EXAM: XR PAIN CLINIC CERVICAL SP 2V CLINICAL HISTORY: Dx: Cervical Spondylosis. TECHNIQUE: Fluoroscopy was provided for the referring physician for guidance with performing pain clinic injection procedure. COMPARISON: No exams were available for comparison FINDINGS: Please see procedure note for details. Fluoro time: 41.6 seconds RADIATION DOSE DELIVERED: samson Bah=16.0 mGy
[2025-06-25 15:01] VITALS: BP 137/71; PULSE 61; RESP 18; TEMP 37.1; O2SAT 98
--- NOTE | 2025-06-25 15:21 | PDOC.PAIN_ITS ---
Date of service: 06/25/25 Time of Service: 15:21 Pain Managment Procedure Note Procedure Note Procedure Note: PROCEDURE NOTE LEFT SIDED CERVICAL MEDIAL BRANCH BLOCKS #2 Date of Service: June 25, 2025 Patient: Davey Rm Provider: John Francois DO, MPH Davey Rm has been referred to the [facility] for cervical medial branch blocks. Pre-operative diagnosis: Cervical Spondylosis without Myelopathy ICD-10 M47.812 Post-operative diagnosis: Same Pre-procedure pain: VAS= 4/10 COMMENTS: He did very well with his first CMBBs on 06/11/25. His neck pain has returned. Davey?was interviewed and the medical records were reviewed. There were no medical, pharmacologic, radiographic or other structural contraindications to attempting fluoroscopically guided local anesthetic cervical medial branch blocks. Risks and potential side effects were discussed. I also discussed the potential benefit(s) of the procedure with Davey, and voiced concerns were addressed. After Davey was completely informed about the procedure, the printed consent form was signed. A standard time-out procedure was performed. Davey was placed in the lateral decubitus position on the fluoroscopy table with the effected side up. Automated blood pressure cuff and pulse oximeter were applied. The skin entry points for approaching the anatomic target points of the segmental medial branches of Left C4,C5, C6, and C7 were identified with fluoroscopy and marked. The skin at the target site area was thoroughly prepared with Chlorhexadine. The skin was then draped. Next, a 25 gauge 3.5 spinal needle was placed under fluoroscopic guidance down on to the target point (the articular pillar) for each respective segmental medial branch. Position was confirmed in A/P and lateral views. Aspiration revealed no blood or clear fluid. Next, 0.25ml of omnipaque 240 was injected at each level. No contrast following a vascular or neural pattern was visualized under continuous fluoroscopy. Next, 0.25 ml of preservative-free 0.5% bupivicaine was injected at each level. (49 mls of Omnipaque was wasted) There was no unusual discomfort expressed by Davey. The needles were withdrawn without difficulty. Davey was observed and was without hemodynamic, neurologic, or allergic reactions.? Fluoroscopic images were digitally archived. Davey's vital signs were stable throughout the procedure and were as recorded in the docflowsheet by the nursing staff. Provacative testing using the Modified Griffin's facet loading test Left side Directly before the block VAS (0-10) = 4/10 Five minutes after the block VAS (0-10) = 0/10 Percentage relief obtained with this diagnostic block 100% Any improved physical functioning directly after the blocks? Able to move his neck much easier. Follow up plans and appointments were discussed with Davey. Davey was instructed to keep careful note of how the usual pain was modified by these injections. Specifically, to keep a pain diary for the next 4 hours using a numeric pain scale of 0-10 and report these results. Post procedure instruction was given as documented in the nursing documentation and having met discharge criteria, the patient was [facility] from the [facility]. Based on the medial branches blocked today, if Davey has adequate relief and we are able to proceed to radiofrequency ablation, the treatment should result in the denervation of the Left C4-C5, C5-C6, and C6-C7 facet joints. We would expect to denervate a total of 3 facets during the radiofrequency ablation. COMMENTS: No apparent complications. Post-procedure pain: VAS= 0/10 Davey will call back with 0-4 hour post-procedure pain scores. I personally performed the entire procedure. JOHN FRANCOIS DO, MPH ABPM&R-subspecialty board certification in Pain Medicine [facility] Coding Conscious Sedation used for procedure: No CPT Codes: CMBB (includes Fluoro) Cervical/Thoracic, 2nd lvl - 00318 ([id number] ~G) CMBB (includes Fluoro) Cervical/Thoracic, 3rd & add'l lvls - 81081 (8476153 ~G) CMBB (includes Fluoro) Cervical/Thoracic, single lvl - 42568 ([id number] ~G) Additional Codes: Date of Service (11443) Date of service: 06/25/25 Diagnoses: Cervical spondylosis without myelopathy
[2025-06-25 15:24] VITALS: PULSE 71; PULSE 72; O2SAT 98
[2025-06-25 15:26] VITALS: BP 151/55; PULSE 72; PULSE 73; RESP 19; O2SAT 97
[2025-06-25 15:30] VITALS: PULSE 77; RESP 17; O2SAT 98
[2025-06-25 15:31] VITALS: BP 169/71; PULSE 76; PULSE 80; RESP 12; O2SAT 98
[2025-06-25 15:44] VITALS: BP 167/95; PULSE 63
[2025-06-25] MEDS: Omnipaque 240 MG/ML 50 ML BTL IJ (15:47)
[2025-06-25] MEDS: Nerve Block Tray 1 EACH MC (15:47)
[2025-06-25] MEDS: Bupivacaine 0.5% Pres-Free 10 ML VIAL IJ (15:48)
== END 2025-06-25 14:45 | disposition home or self-care (01) ==
LOC: PC 14:45
PROVIDERS: PCP Physician Assistant; Visit Provider Preventive Medicine Occupational Medicine
DX: M47.812 Spondylosis without myelopathy or radiculopathy, cervical region (principal)
CPT/HCPCS: 64490; 64491; 64492; 72040; J0665; Q9967

== ENCOUNTER 2025-09-04 07:50 | Outpatient (CLI) | payer BC, SELFPAY ==
[2025-09-04] VITALS (13 sets, daily range): BP systolic 122–173; BP diastolic 49–81; PULSE 56–80; RESP 10–20; TEMP 37.2; O2SAT 95–99
[2025-09-04] MEDS: fentaNYL 100 MCG/2 ML VIAL IJ ×2 (08:55→09:05)
[2025-09-04] MEDS: Midazolam 2 MG/2 ML VIAL IVP (08:55)
[2025-09-04] MEDS: Nerve Block Tray 1 EACH MC (09:12)
[2025-09-04] MEDS: Lactated Ringers 500 ML 30 ML IV (09:13)
--- NOTE | 2025-09-04 09:30 | DI.RAD_ITS ---
Exam(s) XR PAIN CLINIC CERVICAL SP 2V EXAM: XR PAIN CLINIC CERVICAL SP 2V CLINICAL HISTORY: DX: Cervical Spondylosis TECHNIQUE: 2D and realtime digital imaging was performed. CONTRAST MATERIAL: Refer to procedure report. COMPARISON: No exams were available for comparison FINDINGS: Fluoroscopy was provided for Dr. Francois during the performance of a cervical radiofrequency ablation. Please refer to the procedure report for complete details. Ka,r=9.38 mGy IMPRESSION: RADIATION DOSE DELIVERED: 0.0 0.0 0
[2025-09-04] MEDS: Lidocaine 2% Pres-Free 5 ML VIAL IJ (09:36)
[2025-09-04] MEDS: Bupivacaine 0.5% Pres-Free 10 ML VIAL IJ (09:36)
[2025-09-04] MEDS: Dexamethasone Sod. Phos./Pres-Free 10 MG/ML VIAL IJ (09:54)
--- NOTE | 2025-09-04 12:19 | PDOC.PAIN ---
Date of service: 09/04/25 Time of Service: 09:15 Pain Managment Procedure Note Procedure Note Procedure Note: PROCEDURE NOTE LEFT Cervical Radiofrequency Ablation Date of Service: September 04, 2025 Patient:Davye Tesfaye? Provider:? John Francois DO, MPH Davey Rm has been referred to the [facility] for LEFT Cervical Radiofrequency Ablation with the [employer] Machine.? Pre Operative Diagnosis: Cervical Spondylosis without Myelopathy ICD-10 M47.812 Post Operative Diagnosis: Same Pre procedure pain; VAS= 4/10 Comments: He did very well with the CMBBs X 2 PROCEDURE: 1. Left C4-C5 facet joint radiofrequency denervation 2. Left C5-C6 facet joint radiofrequency denervation 3. Left C6-C7 facet joint radiofrequency denervation Davey?was interviewed and the medical record was reviewed.? There were no medical, pharmacologic, radiographic or other structural contraindications to attempting fluoroscopically guided LEFT Cervical Radiofrequency Ablation.?Risks and expected side effects as well as potential benefit of the procedure were reviewed with Davey, and the patient's voiced concerns were addressed.? The printed consent form was signed.? Standard time-out procedure was performed. Davey was brought to the procedure suite and placed on the exam table in a comfortable lateral recumbent position. A grounding pad was placed on the right abdomen. The place for the needle placement was obtained by manual palpation as well as radiographic confirmation. The sterile field was prepped by chlorhexidine and sterile drapes. Local anesthesia, both superficial and deep was provided by local infiltration of 3 ml Lidocaine 1%. Using fluoroscopic guidance, A 17g 50 mm radiofrequency introducer needle with a 2 mm active tip was placed overlying the left C4 cervical vertebra from the lateral approach and was advanced until bony contact was felt with the articular pillar. Attempted aspiration revealed no blood or cerebrospinal fluid. Motor testing was then performed with 2.0 volts and no upper extremity motor stimulation was observed. 1 ml of 2% Lidocaine was injected through the RF needle. A radiofrequency lesion of the Left medial branch of C4 was then performed at 80 degrees Celsius for 2 minutes and 30 seconds. There was no unusual discomfort expressed by Davey. The needles were withdrawn without difficulty. Davey was observed and was without hemodynamic, neurologic, or allergic reactions. Fluoroscopic images were digitally archived. The same procedure was repeated for Left C5, C6 and C7 medial branches. POST PROCEDURE EVALUATION: IMPRESSION: 1. Medication given is documented in the MAR 2. Follow up plan: Davey to contact [facility] as needed. This procedure may be repeated if the patient achieves at least 50% improvement in pain and/or function for at least 6 months. 3. Estimated Blood Loss: <5ml 4. Fluoroscopy time: Documented in the EMR Follow up plans and appointments were discussed with Davey. Post procedure instruction was given as documented in nursing documentation and having met discharge criteria, Davey was discharged from the [facility]. This advanced procedure uses cooled radiofrequency energy to safely target the sensory nerves responsible for sending pain signals.1 A radiofrequency generator transmits a small current of Radiofrequency energy through an insulated electrode, or probe, placed within tissue. Ionic heating, produced by the friction of charged molecules, thermally deactivates the nerves responsible for sending pain signals to the brain. Radiofrequency energy heats and cools the tissue at the site of pain. Unlike other Radiofrequency procedures, Coolief circulates water through the device while heating nervous tissue to create a larger treatment area, increasing the opportunity to help with pain. This combination targets the pain-transmitting nerves without excessive heating, leading to pain relief. COMMENTS: No apparent complications. Post-procedure pain: VAS= 0/10. I personally performed this entire procedure. JOHN FRANCOIS DO, MPH ABPM&R - Subspecialty board certification in Pain Medicine [facility] Coding Conscious Sedation used for procedure: No CPT Codes: Single Facet Joint, Cervical/Thoracic cool - 13661H ([id number]~G) Single Facet Joint, Cervical/Thoracic cool each add'l - 65861O (34007I37~G) Additional Codes: Date of Service () Diagnoses: Cervical spondylosis without myelopathy
== END 2025-09-04 07:51 | disposition home or self-care (01) ==
LOC: PC 07:51
PROVIDERS: PCP Physician Assistant; Visit Provider Preventive Medicine Occupational Medicine
DX: M47.815 Spondylosis without myelopathy or radiculopathy, thoracolumbar region (principal)
CPT/HCPCS: 64633; 64634; 72040; J0665; J1100; J2250; J3010